=== PATIENT | male | born 1960 | race Caucasian/White ===

== ENCOUNTER 2019-01-31 22:33 | Emergency (ER) | payer OTHER ==
[~2019-01-31] VITALS: Ht 193 cm; Wt 95.2 kg
[~2019-01-31 22:33] MED LIST: ALBU90OI INH; AZIT250 PO; Augmentin 875-1 EACH PO; BENZ100A PO; Bactrim Ds Tab1 EACH PO; CEPH500 PO; HYDACE5 PO; HYDACE5325 PO; IBUP800 PO; Keflex500 MG PO; OXYACE5T PO; PROCODE120 PO; Percocet 5-3251 EACH PO; Prednisone20 MG PO; Zithromax250 MG PO
[2019-02-01 01:19] LABS: BASOPHILS ABSOLUTE AUTO 0.03 K/mm3 (0.00-0.23); BASOPHILS PERCENT AUTO 0 % (0-2); EOSINOPHILS ABSOLUTE AUTO 0.02 K/mm3 (0.00-0.68); EOSINOPHILS PERCENT AUTO 0 % (0-6); Hematocrit 44.3 % (37.0-53.0); Hemoglobin 14.5 g/dL (13.5-17.5); IMMATURE GRAN ABSOLUTE AUTO 0.02 K/mm3 (0.00-0.10); IMMATURE GRAN PERCENT AUTO 0 % (0-1); LYMPHOCYTES ABSOLUTE AUTO 1.61 K/mm3 (0.84-5.20); LYMPHOCYTES PERCENT AUTO 18 % (21-46); MONOCYTES ABSOLUTE AUTO 1.05 K/mm3 (0.16-1.47); MONOCYTES PERCENT AUTO 12 % (4-13); Mean Corpuscular HGB 30.9 pg (26.0-34.0); Mean Corpuscular HGB Conc 32.7 g/dL (31.5-36.5); Mean Corpuscular Volume 94 fL (80-100); Mean Platelet Volume 10.1 fL (9.1-12.4); NEUTROPHILS ABSOLUTE AUTO 6.41 K/mm3 (1.96-9.15); NEUTROPHILS PERCENT AUTO 70 % (41-73); Platelet Count 170 K/mm3 (150-400); RDW Coefficient Variation 13.4 % (11.7-14.2); RDW Standard Deviation 46.3 fL (35.1-46.3); White Blood Cell Count 9.14 K/mm3 (4.00-11.30)
[2019-02-01 01:35] LABS: Alanine Aminotransfer (ALT/SGP 153 U/L (12-78); Albumin, Blood 3.8 g/dL (3.4-5.0); Alk Phos 84 U/L (50-136); Anion Gap 6 mmol/L (6-16); Aspartate Aminotrans (AST/SGOT 65 U/L (12-37); Bilirubin, Total 0.5 mg/dL (0.1-1.0); Blood Urea Nitrogen 16 mg/dL (8-24); Bun/Creatinine Ratio 16.8 (12.0-20.0); CO2, Blood 29 mmol/L (21-32); Calcium, Blood 9.1 mg/dL (8.5-10.1); Chloride, Blood 107 mmol/L (98-108); Creatinine, Blood 0.95 mg/dL (0.60-1.20); Globulin, Blood 3.7 g/dL (2.2-4.0); Glomerular Filtration Rate >60 (60-); Glucose, Blood 105 mg/dL (70-99); Sodium, Blood 142 mmol/L (136-145); Total Protein, Blood 7.5 g/dL (6.4-8.2)
[2019-02-01] MEDS ORDERED: Zithromax250 MG PO (03:39)
[2019-02-01] MEDS ORDERED: Prednisone20 MG PO (03:39)
[2019-02-01] MEDS ORDERED: ALBU90OI INH (03:39)
== END 2019-02-01 03:55 | disposition home or self-care (01) ==
LOC: ER 22:33
PROVIDERS: Emergency Medicine
DX: R06.2 Wheezing (principal); R05 Cough; F17.210 Nicotine dependence, cigarettes, uncomplicated
CPT/HCPCS: 71046; 80053; 83605; 85025; 94640; 99284-25

== ENCOUNTER 2019-08-28 21:53 | Emergency (ER) | payer OTHER ==
[~2019-08-28] VITALS: Ht 190.5 cm; Wt 95.2 kg
[2019-08-29] MEDS ORDERED: CEPH500 PO (00:18)
== END 2019-08-29 00:51 | disposition home or self-care (01) ==
LOC: ER 21:53
DX: S01.01XA Laceration without foreign body of scalp, initial encounter (principal); L03.811 Cellulitis of head [any part, except face]; W22.8XXA Striking against or struck by other objects, initial encounter; F17.200 Nicotine dependence, unspecified, uncomplicated
CPT/HCPCS: 70450; 99283-25; A9270-GY

== ENCOUNTER → 2020-02-11 | Outpatient (CLI) | payer OTHER ==
[~2020-02-11] MED LIST changes: +Monodox100 MG PO
== END | disposition home or self-care (01) ==
LOC: PLD 12:54 → LAB SHORT 12:54
DX: C44.212 Basal cell carcinoma of skin of right ear and external auricular canal (principal); L98.8 Other specified disorders of the skin and subcutaneous tissue
CPT/HCPCS: 88305

== ENCOUNTER 2021-03-14 08:47 | Day surgery (SDC) | payer OTHER ==
[~2021-03-14] VITALS: Ht 193 cm; Wt 91.1 kg
[~2021-03-14 08:47] MED LIST changes: +AMLO10 PO; +MULTIPLE VITAM1 EACH PO; +SILD25T PO; +TAMS.4ER PO
--- NOTE | 2021-03-14 09:44 | NUR ---
Ambulatory in Day SurgeryPatient states colon prep results clear. History, Chart, Medications and Allergies reviewed before start of procedure.Lungs clear T/O to Auscultation. Patient confirms NPO status and agrees with scheduled surgery. Pre-Op teaching done. Pt verbalizes understanding. Patient States Post-Procedure ride home has been arranged.
--- NOTE | 2021-03-14 11:15 | NUR ---
Patient up to Ambulate independently. Gait steady. Discharge instructions reviewed with patient. Patient verbalizes understanding. Copy given to patient to take home. Discharged via wheelchair to private car for ride home.
== END 2021-03-14 11:14 | disposition home or self-care (01) ==
LOC: ORSCMMR 08:47 → ORD 10:00 → ORSCMMR 11:14
PROVIDERS: Internal Medicine Gastroenterology
PROC: 0DBN8ZX Excision of Sigmoid Colon, Via Natural or Artificial Opening Endoscopic, Diagnostic (ICD-10-PCS; principal; 2021-03-14 10:00)
DX: Z12.11 Encounter for screening for malignant neoplasm of colon (principal); K63.5 Polyp of colon; I10 Essential (primary) hypertension; J44.9 Chronic obstructive pulmonary disease, unspecified; K64.8 Other hemorrhoids; F17.210 Nicotine dependence, cigarettes, uncomplicated; Z79.899 Other long term (current) drug therapy
CPT/HCPCS: 88305; J2704; J7120

== ENCOUNTER 2021-12-05 22:01 | Observation (INO) | payer OTHER ==
[~2021-12-05] VITALS: Ht 193 cm; Wt 89.9 kg
[2021-12-05 22:32] LABS: BASOPHILS ABSOLUTE AUTO 0.06 K/mm3 (0.00-0.23); BASOPHILS PERCENT AUTO 1 % (0-2); EOSINOPHILS ABSOLUTE AUTO 0.17 K/mm3 (0.00-0.68); EOSINOPHILS PERCENT AUTO 3 % (0-6); Hemoglobin 14.5 g/dL (13.5-17.5); IMMATURE GRAN ABSOLUTE AUTO 0.02 K/mm3 (0.00-0.10); IMMATURE GRAN PERCENT AUTO 0 % (0-1); LYMPHOCYTES PERCENT AUTO 41 % (21-46); MONOCYTES ABSOLUTE AUTO 0.53 K/mm3 (0.16-1.47); MONOCYTES PERCENT AUTO 8 % (4-13); Mean Corpuscular HGB Conc 33.7 g/dL (31.5-36.5); Mean Corpuscular Volume 92 fL (80-100); Mean Platelet Volume 9.6 fL (9.1-12.4); NEUTROPHILS PERCENT AUTO 47 % (41-73); Platelet Count 229 K/mm3 (150-400); RDW Coefficient Variation 13.1 % (11.7-14.2); RDW Standard Deviation 44.2 fL (35.1-46.3); Red Blood Cell Count 4.68 M/mm3 (4.30-5.90); White Blood Cell Count 6.58 K/mm3 (4.00-11.30)
[2021-12-05 22:37] LABS: Source, Urine Clean Catch
[2021-12-05 22:43] LABS: Bilirubin, Urine Neg (Neg); Blood, Urine Neg (Neg); Glucose Qualitative, Urine Neg (Neg); Ketones, Urine Neg (Neg); Leukocyte Esterase, Urine Neg (Neg); Nitrite, Urine Neg (Neg); Protein, Urine Neg (Neg); Urobilinogen, Urine NORM (Normal)
[2021-12-05 22:45] LABS: Appearance, Urine Clear (Clear); Color, Urine Yellow (P-Yellow)
[2021-12-05 22:51] LABS: Alanine Aminotransfer (ALT/SGP 32 U/L (12-78); Albumin, Blood 3.8 g/dL (3.4-5.0); Alk Phos 63 U/L (50-136); Anion Gap 5 mmol/L (6-16); Aspartate Aminotrans (AST/SGOT 24 U/L (12-37); Bilirubin, Total 0.3 mg/dL (0.1-1.0); Blood Urea Nitrogen 20 mg/dL (8-24); Bun/Creatinine Ratio 20.6 (12.0-20.0); CO2, Blood 29 mmol/L (21-32); Calcium, Blood 9.1 mg/dL (8.5-10.1); Chloride, Blood 106 mmol/L (98-108); Creatinine, Blood 0.97 mg/dL (0.60-1.20); Globulin, Blood 3.8 g/dL (2.2-4.0); Glomerular Filtration Rate >60 (60-); Glucose, Blood 117 mg/dL (70-99); Potassium, Blood 3.9 mmol/L (3.5-5.5); Sodium, Blood 140 mmol/L (136-145); Total Protein, Blood 7.6 g/dL (6.4-8.2)
--- NOTE | 2021-12-06 02:40 | NUR ---
ADMISSION REPORT RECIEVED FROM ER NURSE. PATIENT ABLE TO AMBULATE INTO PCU ROOM INDEPENDENTLY. ALERT AND ORIENTED x4, ANSWERS QUESTIONS APPROPRIATELY. DENIES ABDOMINAL PAIN AT THIS TIME. NS INFUSING UPON ADMISSION. PATIENT ORIENTED TO ROOM AND CALL LIGHT SYSTEM.
--- NOTE | 2021-12-06 07:20 | NUR ---
SHIFT SUMMARY NO SIGNIFICANT CHANGES SINCE ADMISSION. VSS. PATIENT ON RA WITH O2 SAT >90%. DENIES ANY PAIN SINCE ARRIVING TO THE UNIT. ADEQUATE URINE OUTPUT. NS INFUSING. WILL REPORT TO DAY SHIFT RN.
--- NOTE | 2021-12-06 08:29 | NUR ---
NURSING PCU DAYSHIFT: Assumed care of pt at approx 0700. A/O, very pleasant, cooperative w/care. Denies any pain/discomfort at rest. Repositions/ambulates independently and w/o difficulty. Skin appears intact w/no breakdown noted. No tele in place, HRR 80-90's, no murmurs noted, SBP 116, no noted edema. L/S with I/E wheezes in upper lobes, occ cough producing clear/stringy sputum, denies dyspnea, O2 sat 96% on RA. Abd SNT, BT slightly hypo in RLQ, c/o occ constipation, voiding w/o difficulty per pt. PIV x1 to RAC, NS infusing at 100cc/hr. Seen by surgeon this a.m. Plan to continue monitoring w/reassessment this afternoon for possible need of surgical intervention, remains NPO. Pt denies any current needs or questions regarding plan of care. Call light in reach, continue to monitor for any changes.
--- NOTE | 2021-12-06 11:01 | NUR ---
INTO SDS VIA GURNEY FROM PCU ROOM. History, Chart, Medications and Allergies reviewed before start of procedure.Patient confirms NPO status and agrees with scheduled surgery.NO PREP ORDERED.DIMINISHED LUNG SOUNDS RLL, EVERYWHERE CLEAR T/O.
--- NOTE | 2021-12-06 11:12 | NUR ---
Homa is lying in bed and alert. 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 He explains that he has no concerns and no spiritual needs but enjoys the conversation and welcomes me to check in with him again. I will continue to remain available to patient and family.
--- NOTE | 2021-12-06 11:43 | NUR ---
12/06/21 1143 [place] Duffy See Anesthesia record DR UNGER
--- NOTE | 2021-12-06 12:18 | NUR ---
NURSING PCU/TRANSFER TO SURG: Pt to day surgery via gurney at approx 1050 for colonoscopy. During procedure, surgical bed assignment received. Rpt given to accepting RN, care transferred at approx 1205, pt still in procedure at that time, belongings xferred to new room assignment.
--- NOTE | 2021-12-06 12:25 | NUR ---
PATIENT ARRIVED FROM PACU TODAY 12/06/21 AT 1225. PATIENT IS ALERT AND ORIENTED X4. HE IS WIDE AWAKE AND ABLE TO TRANSFER TO HIS BED. DENIES PAIN AT THIS TIME. TOLERATES SMALL AMOUNTS OF WATER. ALSO DENIES NAUSEA AND VOMITING. PATIENT IS LAYING IN BED WITH CALL LIGHT IN REACH.
--- NOTE | 2021-12-07 05:04 | NUR ---
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 INDEPENDENT IN ROOM. CONTINUED SCHEDULED MIRALAX PER EMAR. NO BM THIS SHIFT BUT PT DOES REPORT PASSING GAS ANY TIME HE GETS UP OUT OF BED. WILL CONTINUE TO MONITOR.
--- NOTE | 2021-12-07 10:12 | NUR ---
DENIES ANY PAIN OR ANY DISCOMFORT THIS AM, REPORTS TOLERATING REGULAR DIET WELL, REPORTS PASSING FLATUS BUT NO BM YET, DR. MONTANEZ AWARE, CONT. TO MONITOR FOR ANY CHANGES.
[2021-12-07] MEDS ORDERED: MIRALAX17 GM PO (14:25)
--- NOTE | 2021-12-07 14:38 | NUR ---
DC'D HOME, DC INSTRUCTIONS GIVEN, VERBALIZED UNDERSTANDING, IV DC'D, CATH INTACT.
== END 2021-12-07 14:39 | disposition home or self-care (01) ==
LOC: ER 22:01 → SURS 22:02 → PCU 22:02 → SURS 22:02 → PCU 12-06 02:37 → SURS 12-06 12:21
PROVIDERS: Physician Assistant; ADMIT Surgery
DX: K56.2 Volvulus (principal); F17.210 Nicotine dependence, cigarettes, uncomplicated
CPT/HCPCS: 74177; 76870; 80053; 81003; 85025; 96372; 96374; 99285-25; A9270; G0378; J1650; J2270; J2704; J7030; J7120; Q9967

== ENCOUNTER 2022-01-11 08:17 | Emergency (ER) | payer OTHER ==
[~2022-01-11] VITALS: Ht 190.5 cm; Wt 77.1 kg
[~2022-01-11 08:17] MED LIST changes: +MIRALAX17 GM PO
[2022-01-11] MEDS ORDERED: OXYC5 PO (10:11)
[2022-01-11] MEDS ORDERED: METPRE4DP PO (10:11)
== END 2022-01-11 10:28 | disposition home or self-care (01) ==
LOC: ER 08:17
DX: M54.16 Radiculopathy, lumbar region (principal); F17.200 Nicotine dependence, unspecified, uncomplicated; Z79.899 Other long term (current) drug therapy
CPT/HCPCS: 99282

== ENCOUNTER 2022-11-15 18:05 | Emergency (ER) | payer OTHER ==
[~2022-11-15] VITALS: Ht 190.5 cm; Wt 97.1 kg
[~2022-11-15 18:05] MED LIST changes: +METPRE4DP PO; +OXYC5 PO
[2022-11-15 19:17] LABS: Source, Urine Clean Catch
[2022-11-15 19:21] LABS: BASOPHILS ABSOLUTE AUTO 0.03 K/mm3 (0.00-0.23); BASOPHILS PERCENT AUTO 1 % (0-2); EOSINOPHILS ABSOLUTE AUTO 0.17 K/mm3 (0.00-0.68); EOSINOPHILS PERCENT AUTO 3 % (0-6); Hematocrit 43.9 % (37.0-53.0); Hemoglobin 14.7 g/dL (13.5-17.5); IMMATURE GRAN PERCENT AUTO 0 % (0-1); LYMPHOCYTES ABSOLUTE AUTO 1.99 K/mm3 (0.84-5.20); LYMPHOCYTES PERCENT AUTO 36 % (21-46); MONOCYTES ABSOLUTE AUTO 0.68 K/mm3 (0.16-1.47); MONOCYTES PERCENT AUTO 12 % (4-13); Mean Corpuscular HGB 29.9 pg (26.0-34.0); Mean Corpuscular HGB Conc 33.5 g/dL (31.5-36.5); Mean Corpuscular Volume 89 fL (80-100); Mean Platelet Volume 9.5 fL (9.1-12.4); NEUTROPHILS ABSOLUTE AUTO 2.67 K/mm3 (1.96-9.15); NEUTROPHILS PERCENT AUTO 48 % (41-73); Platelet Count 181 K/mm3 (150-400); RDW Coefficient Variation 13.2 % (11.7-14.2); RDW Standard Deviation 43.2 fL (35.1-46.3); Red Blood Cell Count 4.91 M/mm3 (4.30-5.90); White Blood Cell Count 5.54 K/mm3 (4.00-11.30)
[2022-11-15 19:25] LABS: Appearance, Urine Clear (Clear); Bilirubin, Urine Neg (Neg); Blood, Urine Neg (Neg); Color, Urine Yellow (P-Yellow); Glucose Qualitative, Urine Neg (Neg); Ketones, Urine Neg (Neg); Leukocyte Esterase, Urine Neg (Neg); Nitrite, Urine Neg (Neg); Protein, Urine 1+ (Neg); Urobilinogen, Urine NORM (Normal)
[2022-11-15 19:46] LABS: Albumin, Blood 3.9 g/dL (3.4-5.0); Albumin/Globulin Ratio 1.1 (0.8-1.8); Bilirubin, Total 0.3 mg/dL (0.1-1.0); Bun/Creatinine Ratio 18.4 (12.0-20.0); Calcium, Blood 9.1 mg/dL (8.5-10.1); Creatinine, Blood 0.98 mg/dL (0.60-1.20); Globulin, Blood 3.5 g/dL (2.2-4.0); Potassium, Blood 3.6 mmol/L (3.5-5.5); Total Protein, Blood 7.4 g/dL (6.4-8.2)
[2022-11-15] MEDS ORDERED: FLUTICASONE-SA1 EAC1 INH (22:39)
[2022-11-15] MEDS ORDERED: ROSU5 PO (22:39)
[2022-11-15] MEDS ORDERED: ALBU2.5V5 (22:40)
[2022-11-16] MEDS ORDERED: LISI5 PO (00:42)
== END 2022-11-16 01:19 | disposition home or self-care (01) ==
LOC: ER 18:05
PROVIDERS: Student in an Organized Health Care Education/Training Program
DX: M79.89 Other specified soft tissue disorders (principal); I10 Essential (primary) hypertension; J44.9 Chronic obstructive pulmonary disease, unspecified; F17.200 Nicotine dependence, unspecified, uncomplicated; Z79.899 Other long term (current) drug therapy
CPT/HCPCS: 36415; 71046; 80053; 83880; 84484; 85025; 93005; 93010; 93970; 99284-25

== ENCOUNTER 2024-07-03 19:54 | Emergency (ER) | payer OTHER ==
[~2024-07-03] VITALS: Ht 190.5 cm; Wt 99.8 kg
[~2024-07-03 19:54] MED LIST changes: +ALBU2.5V5; +Crestor40 MG PO; +FLUTICASONE-SA1 EAC1 INH; +LISI5 PO
[2024-07-03] MEDS ORDERED: Mag Hydrox/AL Hydrox/Simeth 30 ML UDC PO ONE (20:15)
[2024-07-03] MEDS ORDERED: Lidocaine 2% Viscous Soln 15 ML UDC PO ONE (20:15)
[2024-07-03 20:22] LABS: BASOPHILS ABSOLUTE AUTO 0.07 K/mm3 (0.00-0.23); BASOPHILS PERCENT AUTO 1 % (0-2); EOSINOPHILS ABSOLUTE AUTO 0.14 K/mm3 (0.00-0.68); EOSINOPHILS PERCENT AUTO 2 % (0-6); Hematocrit 44.6 % (37.0-53.0); Hemoglobin 15.4 g/dL (13.5-17.5); IMMATURE GRAN ABSOLUTE AUTO 0.02 K/mm3 (0.00-0.10); IMMATURE GRAN PERCENT AUTO 0 % (0-1); LYMPHOCYTES ABSOLUTE AUTO 2.06 K/mm3 (0.84-5.20); LYMPHOCYTES PERCENT AUTO 25 % (21-46); MONOCYTES ABSOLUTE AUTO 0.75 K/mm3 (0.16-1.47); MONOCYTES PERCENT AUTO 9 % (4-13); Mean Corpuscular HGB 31.8 pg (26.0-34.0); Mean Corpuscular HGB Conc 34.5 g/dL (31.5-36.5); Mean Corpuscular Volume 92 fL (80-100); Mean Platelet Volume 9.4 fL (9.1-12.4); NEUTROPHILS ABSOLUTE AUTO 5.17 K/mm3 (1.96-9.15); NEUTROPHILS PERCENT AUTO 63 % (41-73); Platelet Count 211 K/mm3 (150-400); RDW Coefficient Variation 12.7 % (11.7-14.2); RDW Standard Deviation 43.1 fL (35.1-46.3); Red Blood Cell Count 4.84 M/mm3 (4.30-5.90); White Blood Cell Count 8.21 K/mm3 (4.00-11.30)
[2024-07-03 20:44] LABS: Albumin, Blood 4.3 g/dL (3.4-5.0); Albumin/Globulin Ratio 1.3 (0.8-1.8); Bilirubin, Total 0.8 mg/dL (0.1-1.0); Bun/Creatinine Ratio 20.5 (12.0-20.0); Calcium, Blood 10.2 mg/dL (8.5-10.1); Creatinine, Blood 1.32 mg/dL (0.60-1.20); Globulin, Blood 3.3 g/dL (2.2-4.0); Potassium, Blood 3.7 mmol/L (3.5-5.5); Total Protein, Blood 7.6 g/dL (6.4-8.2)
[2024-07-03] MEDS ORDERED: Sucralfate 1000MG / 10ML UD BTL PO ONE (22:35)
[2024-07-03] MEDS ORDERED: FentaNYL Citrate 50 MCG/ML 2 ML Injection IV ONE (22:40)
[2024-07-04] MEDS ORDERED: Pantoprazole Sodium 40 MG Injection IV ONE ×2 (00:15→00:30)
[2024-07-04] MEDS ORDERED: Metoclopramide HCl 5MG / ML 2ML Vial IV ONE (00:15)
[2024-07-04 01:42] VITALS: BP 136/74
[2024-07-05] MEDS ORDERED: HYDCHL12.5 PO (14:54)
[2024-07-05] MEDS ORDERED: MONT10T PO (14:55)
== END 2024-07-04 01:41 | disposition home or self-care (01) ==
LOC: ER 19:54
PROVIDERS: Emergency Medicine
DX: R10.13 Epigastric pain (principal); I10 Essential (primary) hypertension; J44.9 Chronic obstructive pulmonary disease, unspecified; Z79.899 Other long term (current) drug therapy; F17.200 Nicotine dependence, unspecified, uncomplicated
CPT/HCPCS: 71046; 80053; 83690; 84484; 85025; 85379; 93005; 93010; 96374; 96375; 99285-25; A9270; J2470; J2765; J3010

== ENCOUNTER 2024-10-08 12:11 | Emergency (ER) | payer OTHER ==
[~2024-10-08] VITALS: Ht 190.5 cm; Wt 122.5 kg
[~2024-10-08 12:11] MED LIST changes: +HYDCHL12.5 PO; +MONT10T PO
[2024-10-08 12:15] VITALS: BP 144/97
[2024-10-08 12:45] LABS: BASOPHILS ABSOLUTE AUTO 0.02 K/mm3 (0.00-0.23); BASOPHILS PERCENT AUTO 0 % (0-2); EOSINOPHILS ABSOLUTE AUTO 0.14 K/mm3 (0.00-0.68); EOSINOPHILS PERCENT AUTO 2 % (0-6); Hematocrit 44.8 % (37.0-53.0); Hemoglobin 15.1 g/dL (13.5-17.5); IMMATURE GRAN ABSOLUTE AUTO 0.02 K/mm3 (0.00-0.10); IMMATURE GRAN PERCENT AUTO 0 % (0-1); LYMPHOCYTES ABSOLUTE AUTO 1.61 K/mm3 (0.84-5.20); LYMPHOCYTES PERCENT AUTO 26 % (21-46); MONOCYTES ABSOLUTE AUTO 0.49 K/mm3 (0.16-1.47); MONOCYTES PERCENT AUTO 8 % (4-13); Mean Corpuscular HGB 30.8 pg (26.0-34.0); Mean Corpuscular HGB Conc 33.7 g/dL (31.5-36.5); Mean Corpuscular Volume 91 fL (80-100); Mean Platelet Volume 9.2 fL (9.1-12.4); NEUTROPHILS ABSOLUTE AUTO 3.95 K/mm3 (1.96-9.15); NEUTROPHILS PERCENT AUTO 64 % (41-73); Platelet Count 200 K/mm3 (150-400); RDW Coefficient Variation 13.3 % (11.7-14.2); RDW Standard Deviation 45.1 fL (35.1-46.3); White Blood Cell Count 6.23 K/mm3 (4.00-11.30)
[2024-10-08 13:02] LABS: Albumin, Blood 3.9 g/dL (3.4-5.0); Bilirubin, Total 0.4 mg/dL (0.1-1.0); Bun/Creatinine Ratio 12.8 (12.0-20.0); Calcium, Blood 9.2 mg/dL (8.5-10.1); Creatinine, Blood 1.09 mg/dL (0.60-1.20); Globulin, Blood 3.8 g/dL (2.2-4.0); Potassium, Blood 3.8 mmol/L (3.5-5.5); Total Protein, Blood 7.7 g/dL (6.4-8.2)
== END 2024-10-08 16:49 | disposition home or self-care (01) ==
LOC: ER 12:11
PROVIDERS: Student in an Organized Health Care Education/Training Program
DX: K59.00 Constipation, unspecified (principal); F17.200 Nicotine dependence, unspecified, uncomplicated
CPT/HCPCS: 71046; 80053; 84484; 85025; 93005; 93010; 99285-25

== ENCOUNTER 2024-10-13 23:16 | Emergency (ER) | payer OTHER ==
[~2024-10-13] VITALS: Ht 190.5 cm; Wt 99.8 kg
[2024-10-13 23:51] LABS: BASOPHILS ABSOLUTE AUTO 0.07 K/mm3 (0.00-0.23); BASOPHILS PERCENT AUTO 1 % (0-2); EOSINOPHILS ABSOLUTE AUTO 0.16 K/mm3 (0.00-0.68); EOSINOPHILS PERCENT AUTO 2 % (0-6); Hematocrit 42.4 % (37.0-53.0); Hemoglobin 14.3 g/dL (13.5-17.5); IMMATURE GRAN ABSOLUTE AUTO 0.02 K/mm3 (0.00-0.10); IMMATURE GRAN PERCENT AUTO 0 % (0-1); LYMPHOCYTES ABSOLUTE AUTO 2.34 K/mm3 (0.84-5.20); LYMPHOCYTES PERCENT AUTO 29 % (21-46); MONOCYTES ABSOLUTE AUTO 0.81 K/mm3 (0.16-1.47); MONOCYTES PERCENT AUTO 10 % (4-13); Mean Corpuscular HGB 30.7 pg (26.0-34.0); Mean Corpuscular HGB Conc 33.7 g/dL (31.5-36.5); Mean Corpuscular Volume 91 fL (80-100); Mean Platelet Volume 9.8 fL (9.1-12.4); NEUTROPHILS ABSOLUTE AUTO 4.63 K/mm3 (1.96-9.15); NEUTROPHILS PERCENT AUTO 58 % (41-73); Platelet Count 272 K/mm3 (150-400); RDW Coefficient Variation 13.5 % (11.7-14.2); RDW Standard Deviation 45.7 fL (35.1-46.3); Red Blood Cell Count 4.66 M/mm3 (4.30-5.90); White Blood Cell Count 8.03 K/mm3 (4.00-11.30)
[2024-10-14] MEDS ORDERED: Ondansetron HCl 2 MG / ML 2ML Vial IV ONE (00:40)
[2024-10-14] MEDS ORDERED: Ketorolac Tromethamine 15mg Vial IV ONE (00:40)
[2024-10-14] MEDS ORDERED: Lidocaine 2% Viscous Soln 15 ML UDC PO ONE (00:40)
[2024-10-14] MEDS ORDERED: Lactated Ringer's 1,000 ML IV ONE (00:40)
[2024-10-14] MEDS ORDERED: Mag Hydrox/AL Hydrox/Simeth 30 ML UDC PO ONE (00:40)
[2024-10-14] MEDS ORDERED: Ipratropium/Albuterol SulF 2.5-0.5MG/3 ML Amp INH ONE (00:40)
[2024-10-14 00:44] LABS: Albumin, Blood 3.9 g/dL (3.4-5.0); Bilirubin, Total 0.7 mg/dL (0.1-1.0); Bun/Creatinine Ratio 17.2 (12.0-20.0); Calcium, Blood 9.1 mg/dL (8.5-10.1); Creatinine, Blood 1.51 mg/dL (0.60-1.20); Globulin, Blood 3.8 g/dL (2.2-4.0); Total Protein, Blood 7.7 g/dL (6.4-8.2)
[2024-10-14] MEDS ORDERED: OMEP20ER PO (01:30)
[2024-10-14 01:55] VITALS: BP 122/84
== END 2024-10-14 01:55 | disposition home or self-care (01) ==
LOC: ER 23:16
PROVIDERS: Student in an Organized Health Care Education/Training Program
DX: R07.2 Precordial pain (principal); R10.13 Epigastric pain; I10 Essential (primary) hypertension; J44.9 Chronic obstructive pulmonary disease, unspecified; F17.200 Nicotine dependence, unspecified, uncomplicated; Z79.51 Long term (current) use of inhaled steroids; Z79.899 Other long term (current) drug therapy
CPT/HCPCS: 71046; 80053; 83690; 84484; 85025; 93005; 93010; 94640; 94664; 96374; 96375; 99285-25; A9270; J1885; J2405; J7120

== ENCOUNTER → 2025-07-01 | Outpatient (CLI) | payer OTHER ==
[~2025-07-01] MED LIST changes: +OMEP20ER PO
[2025-07-03 18:49] LABS: LACTOFERRIN,FECAL BY ELISA Negative (Negative)
[2025-07-04 14:52] LABS: GIARDIA ANTIGEN BY EIA Negative (Negative)
== END ==
LOC: LAB SHORT 10:48 → LAB 10:48 → LAB FUT 06-30 12:20
PROVIDERS: Nurse Practitioner
DX: K58.0 Irritable bowel syndrome with diarrhea (principal); K21.9 Gastro-esophageal reflux disease without esophagitis
CPT/HCPCS: 83630; 87329; 87338